=== PATIENT | female | born 1965 | race Caucasian/White ===

== ENCOUNTER → 2016-07-08 | Outpatient (CLI) | payer BC ==
--- NOTE | 2016-07-08 09:19 | DIAGNOSTIC IMAGING REPORT ---
LEFT KNEE MRI HISTORY: Left knee pain. COMPARISON STUDY: None. TECHNIQUE: Multiplanar multisequence MRI of the left knee was performed according to standard department protocol without the use of contrast. FINDINGS: Menisci: The lateral meniscus is intact. There is no oblique tear extending to the undersurface of the body and posterior horn of the medial meniscus. There is a small meniscal flap at the body of the medial meniscus which extends into the inferior meniscal gutter. This measures 3 mm and is best seen on image 14 of the coronal sequences. Ligaments: The anterior and posterior cruciate ligaments are intact. The medial and lateral collateral ligaments are normal in appearance. Extensor mechanism: The quadriceps tendon and patellar ligament are intact. Articular cartilage and bone: No fracture or dislocation. Normal marrow signal intensity seen throughout the visualized osseous structures. Cartilage spaces are maintained for age. Joint effusion: Small. Soft tissues: There is a small popliteal cyst measuring 5.2 x 1.6 cm. No intra-articular loose bodies. IMPRESSION: 1. There is a tear involving the body and posterior horn of the medial meniscus as described above. There is an associated small meniscal flap at the body of the medial meniscus which extends into the inferior meniscal gutter. 2. Small joint effusion. 3. Small popliteal cyst. Electronically signed by: Tio Langston M.D. 07/08/2016 9:18 AM Dictated Date/Time: 07/08/2016 9:14 AM
== END | disposition home or self-care (01) ==
LOC: C.MRIBC 07:42
PROVIDERS: ATTEND Orthopaedic Surgery
DX: M25.562 Pain in left knee (principal)

== ENCOUNTER → 2016-10-30 | Outpatient (CLI) | payer BC ==
[2016-10-30 14:24] LABS: URINE APPEARANCE CLEAR (CLEAR); URINE BILIRUBIN NEG (NEG); URINE COLOR YELLOW; URINE EPITHELIAL CELL AUTO 0-5 /lpf (0-5); URINE NITRITE NEG (NEG); URINE PH 6.5 (4.5-7.5); URINE SPECIFIC GRAVITY 1.008 (1.000-1.030); UROBILINOGEN NEG (NEG)
[2016-10-30 14:27] LABS: MANUAL MICROSCOPIC REQUIRED? NO; REVIEW REQ? NO
== END | disposition home or self-care (01) ==
LOC: C.LAB1850 11:17
PROVIDERS: ATTEND Obstetrics & Gynecology
DX: Z01.419 Encounter for gynecological examination (general) (routine) without abnormal findings (principal); N87.1 Moderate cervical dysplasia; R39.9 Unspecified symptoms and signs involving the genitourinary system

== ENCOUNTER → 2016-10-30 | Outpatient (CLI) | payer BC | END | disposition home or self-care (01) | LOC: C.PAPS 14:17 | PROVIDERS: ATTEND Obstetrics & Gynecology | DX: Z00.00 Encounter for general adult medical examination without abnormal findings (principal); N87.1 Moderate cervical dysplasia ==